=== PATIENT | female | born 1980 | race Caucasian/White ===

== ENCOUNTER 2016-10-03 06:52 | Day surgery (SDC) | payer OTHER ==
[~2016-10-03] VITALS: Ht 167.6 cm; Wt 67.3 kg
[2016-10-03 07:20] VITALS: BP 124/88; PULSE 99; RESP 20; TEMP 98; O2SAT 97
[2016-10-03] MEDS ORDERED: SODIUM CHLOR 0.9% 1000 ML INJ 1,000 ML IV ONE (07:30)
[2016-10-03 08:26] LABS: APTT (PATIENT) 27.8 SEC (24.3-30.1); PROTHROMBIN TIME - PATIENT 11.4 SEC (9.8-11.6)
[2016-10-03 08:30] LABS: BICARBONATE 21.8 MEQ/L (21.0-32.0); POTASSIUM 4.4 MEQ/L (3.5-5.1)
[2016-10-03 08:57] LABS: AUTOMATED NEUTROPHIL # 3.5 TH/MM3 (1.8-7.7); BASOPHIL % 0.9 % (0.0-2.0); EOSINOPHIL # 0.1 TH/MM3 (0-0.4); EOSINOPHIL % 1.2 % (0.0-4.0); HEMO FLAGS DIFF FINAL; LYMPH % 21.3 % (9.0-44.0); LYMPHOCYTE # 1.1 TH/MM3 (1.0-4.8); MEAN CELL VOLUME 91.8 FL (80.0-100.0); MEAN CORPUSCULAR HGB CONC 34.8 % (32.0-36.0); MONO % 9.6 % (0.0-8.0); PLATELET COUNT 266 TH/MM3 (150-450); RED BLOOD COUNT 4.24 MIL/MM3 (4.00-5.30); RED CELL DISTRIBUTION WIDTH 12.2 % (11.6-17.2); WHITE BLOOD COUNT 5.3 TH/MM3 (4.0-11.0)
[2016-10-03 09:47] VITALS: BP 109/59; PULSE 75; RESP 18; TEMP 98.1; O2SAT 99
--- NOTE | 2016-10-03 09:54 | PD.RAD ---
Post Procedure Progress Note Pre Procedure Diagnosis: (1) Multiple sclerosis Post Procedure Diagnosis: (1) Multiple sclerosis Procedure Date: Oct 03, 2016 Supervising Radiologist: Oskar Becerra Proceduralist/Assist: Juana Santana, RT(R), Jodi Legre RT(R)() Anesthesia: Local Plan of Activity Patient to Unit: Nursing Unit Patient Condition: Good See PACS Report for procedural detail/treatment Spinal Procedure Lumbar Puncture L3-L4 Fluid Removal (CCs): 10 Fluid Description: Oskar Schmidt MD Oct 03, 2016 09:54
[2016-10-03 11:25] LABS: GROSS BLOOD TUBE #1 0 (0); GROSS BLOOD TUBE #2 0 (0); SUPERNATE COLOR TUBE #1 CLEAR (CLEAR); SUPERNATE COLOR TUBE #2 CLEAR (CLEAR); SUPERNATE COLOR TUBE #3 CLEAR (CLEAR); VOLUME TUBE # 2 2.8 ML; WBC TUBE #1 4 /MM3 (0-10)
[2016-10-03 11:26] LABS: CSF LYMPHOCYTES 100 %; CSF NEUTROPHILS 0 %; GROSS BLOOD TUBE #3 0 (0); GROSS BLOOD TUBE #4 0 (0); SUPERNATE COLOR TUBE #4 CLEAR (CLEAR)
[2016-10-03 11:27] LABS: CSF LYMPHOCYTES 0 %; CSF NEUTROPHILS 0 %; GROSS BLOOD TUBE #4 0 (0); SUPERNATE COLOR TUBE #4 CLEAR (CLEAR); WBC TUBE #4 0 /MM3 (0-10)
[2016-10-03 11:45] VITALS: BP 119/75; PULSE 77; RESP 18; O2SAT 97
--- NOTE | 2016-10-03 13:26 | RADRPT ---
EXAM DATE/TIME: 10/03/2016 09:40 [facility] COMPARISON: No previous studies available for comparison. INDICATIONS : Patient is in need of a lumbar puncture to evaluate CSF due to multiple sclerosis. MEDICAL HISTORY : History of HTN, extremity weakness, blurred vision, paralysis with demyelinated brain lesions. SURGICAL HISTORY : N/A ENCOUNTER: Initial ACUITY: 1 month PAIN SCORE: 0/10 LUMBAR PUNCTURE TIME: 0937 hours FLUORO TIME: 0.9 IMAGE SERIES: 0 ACCESS LEVEL: L3-4 OPENING PRESSURE: 15 cm of water CLOSING PRESSURE: 10 cm of water FLUID: 10.5 cc of clear CSF was collected and sent to the laboratory for analysis. PROCEDURE : 1. Fluoroscopic guided lumbar puncture. 2. Recording of opening pressure. The risks, benefits and alternatives to the procedure were explained and verbal and written consent w as obtained. The site was prepped in sterile fashion. Full sterile technique was used, including ca p, mask, sterile gloves and gown and a large sterile sheet. Hand hygiene and 2% chlorhexidine and/or betadine/alcohol prep was utilized per protocol for cutaneous antisepsis. The skin and subcutaneous tissues were infiltrated with local anesthetic solution. With fluoroscopic guidance the lumbar thecal sac was punctured at the above level described above and the opening pressure was recorded. The above described fluid was removed without difficulty. The patient tolerated the procedure well and there were no complications. CONCLUSION: Uncomplicated fluoroscopically guided lumbar puncture with pressures as above. Oskar Becerra MD on October 03, 2016 at 13:24 Board Certified Radiologist. This report was verified electronically.
[2016-10-04 08:21] LABS: HSV 1,PCR Negative (Negative)
[2016-10-05 19:52] LABS: VZV PCR RESULT <500 (())
[2016-10-06 07:50] LABS: B. BURGDORFERI DNA PCR CSF NOT DETECTED (())
[2016-10-06 10:07] LABS: CSF CRYPTOCOCCUS AG CONF ND (NOT DETECTD)
== END 2016-10-03 12:02 | disposition home or self-care (01) ==
LOC: HROP 06:52 → HRIP 06:59 → HROP 12:02
PROVIDERS: ATTEND Psychiatry & Neurology Neurology
DX: G35 Multiple sclerosis (principal); G81.90 Hemiplegia, unspecified affecting unspecified side; H53.8 Other visual disturbances; R53.1 Weakness; I10 Essential (primary) hypertension; Z86.2 Personal history of diseases of the blood and blood-forming organs and certain disorders involving the immune mechanism
CPT/HCPCS: 62270; 77003; 80048; 82040; 82042; 82784; 82945; 83873; 83916; 84157; 85025; 85610; 85730; 86403; 87070; 87205; 87497; 87529; 87799; 87801; 89051; J7030

== ENCOUNTER → 2016-10-05 | Day surgery (SDC) | payer OTHER ==
[~2016-10-05] VITALS: Ht 167.6 cm; Wt 68.0 kg
[~2016-10-05] MED LIST: GADODIAMIDE PF 287 MG/ML 5 ML VIAL (for RAD MRI) IV ONE
[2016-10-05 10:26] VITALS: BP 137/93; PULSE 80; RESP 16; TEMP 98; O2SAT 99
--- NOTE | 2016-10-05 14:54 | RADRPT ---
EXAM DATE/TIME: 10/05/2016 14:01 [facility] COMPARISON: No previous studies available for comparison. INDICATIONS : Hematoma. CONTRAST: 13 cc IV MEDICAL HISTORY : None. SURGICAL HISTORY : None. ENCOUNTER: Subsequent ACUITY: 1 day PAIN SCORE: 5/10 LOCATION: [facility] TECHNIQUE: Multiplanar multisequence MRI of the lumbar spine was performed with and without contrast. FINDINGS: The most caudal appearing lumbar vertebra is numbered as L5. VERTEBRAE: Homogeneous signal. Normal alignment. CONUS: Normal level and configuration. POST CONTRAST: No abnormal areas of contrast enhancement are seen. T12-L1: The thecal sac has a normal diameter. No evidence of disc bulge or protrusion. The neural foramina are patent bilaterally. L1-L2: The thecal sac has a normal diameter. No evidence of disc bulge or protrusion. The neural foramina are patent bilaterally. L2-L3: The thecal sac has a normal diameter. No evidence of disc bulge or protrusion. The neural foramina are patent bilaterally. L3-L4: The thecal sac has a normal diameter. No evidence of disc bulge or protrusion. The neural foramina are patent bilaterally. L4-L5: The thecal sac has a normal diameter. No evidence of disc bulge or protrusion. The neural foramina are patent bilaterally. L5-S1: The thecal sac has a normal diameter. No evidence of disc bulge or protrusion. The neural foramina are patent bilaterally. CONCLUSION: Negative exam. Spinal canal and neural foramina are patent at all lumbar levels without nerve ro ot compromise. Dany Rojo MD on October 05, 2016 at 14:48 Board Certified Radiologist. This report was verified electronically.
== END | disposition home or self-care (01) ==
LOC: HSDC 09:49
PROVIDERS: ATTEND Anesthesiology
DX: Z53.8 Procedure and treatment not carried out for other reasons (principal); T14.8 Other injury of unspecified body region
CPT/HCPCS: 72158; 99211; A9579; G0463